=== PATIENT | female | born 1980 | race Caucasian/White ===

== ENCOUNTER 2018-12-10 14:24 | Outpatient (CLI) | payer BC ==
[2018-12-10 15:39] LABS: ADD UMIC NO; UR ASCORBIC ACID NEGATIVE (NEGATIVE); UR BILIRUBIN (Dip) NEGATIVE (NEGATIVE); UR BLOOD (Dip) NEGATIVE (NEGATIVE); UR CLARITY CLEAR (CLEAR); UR COLOR YELLOW (YELLOW); UR GLUCOSE (Dip) NEGATIVE (NEGATIVE); UR KETONES (Dip) NEGATIVE (NEGATIVE); UR LEUKOCYTE ESTERASE (Dip) NEGATIVE Leu/ul (NEGATIVE); UR NITRITE (Dip) NEGATIVE (NEGATIVE); UR TOTAL PROTEIN (Dip) NEGATIVE (NEGATIVE); UR UROBILINOGEN (Dip) NEGATIVE (NEGATIVE)
[2018-12-10 16:41] LABS: RUPTURE FETAL MEMBRANES NEGATIVE (NEGATIVE)
== END 2018-12-10 17:26 | disposition home or self-care (01) ==
LOC: OBT 14:24 → L-D 14:24 → OBT 17:26
DX: O62.9 Abnormality of forces of labor, unspecified (principal); O09.513 Supervision of elderly primigravida, third trimester; Z3A.36 36 weeks gestation of pregnancy
CPT/HCPCS: 76818; 81003; 84112